=== PATIENT | female | born 1965 | race Caucasian/White ===

== ENCOUNTER 2018-02-21 13:32 | Inpatient (IN) | payer OTHER ==
[2018-02-21 14:08] LABS: #Basophils 0.1 thou/uL (0.0-0.2); #Eosinphils 0.1 thou/uL (0.0-0.7); #Lymphocytes 2.7 thou/uL (1.20-3.40); #Monocytes 0.6 thou/uL (0.11-0.59); #Neutrophils 4.7 thou/uL (1.40-6.50); %Basophils 0.7 % (0.0-1.0); %Eosinophils 0.7 % (0.0-10.0); %Lymphocytes 33.4 % (21.0-51.0); %Monocytes 7.5 % (0.0-10.0); %Neutrophils 57.6 % (42.0-75.0); Hemoglobin 14.8 g/dL (12.0-16.0); Mean Corpuscular HGB CONC 33.5 g/dL (32.0-36.0); Mean Corpuscular Hemoglobin 31.6 pg (27.0-31.0); Mean Corpuscular Volume 94.3 fL (78.0-98.0); Mean Platelet Volume 7.7 fL (7.4-10.4); Platelet Count 377 thou/uL (130-400); RBC Distribution Width 11.7 % (11.5-14.5); Red Blood Cell (RBC) Count 4.67 mill/uL (4.20-5.40); White Blood Cell (WBC) Count 8.1 thou/uL (4.8-10.8)
[2018-02-21 14:14] LABS: Prothrombin Time 13.7 SEC (12.0-14.7)
[2018-02-21 14:15] LABS: PTT 29.9 SEC (22.9-36.1)
[2018-02-21 14:30] LABS: ALT (SGPT) 32 U/L (8-55); AST (SGOT) 27 U/L (5-34); Albumin 4.6 g/dL (3.5-5.0); Alkaline Phosphatase 80 U/L (40-150); Anion Gap 14 mmol/L (10-20); BUN (Urea Nitrogen) 12 mg/dL (9.8-20.1); Bilirubin, Total 0.7 mg/dL (0.2-1.2); CK (CPK) 102 U/L (29-168); Calc. Creatinine Clearance 0 mL/min (70-130); Carbon Dioxide 24 mmol/L (22-29); Chloride 101 mmol/L (98-107); Estimated GFR-MDRD 70; Globulin 2.7 g/dL (2.4-3.5); Glucose 102 mg/dL (70-105); Protein, Total 7.3 g/dL (6.0-8.3); Sodium 135 mmol/L (136-145)
[2018-02-21 14:35] LABS: Troponin I Less than 0.010 ng/mL (< 0.028)
--- NOTE | 2018-02-21 15:06 | CT ---
CT BRAIN PERFORMED WITHOUT CONTRAST ENHANCEMENT: Date: 02/21/18 HISTORY: Left-sided numbness. FINDINGS: Ventricular and cisternal system is within normal limits. No signs of intracerebral hemorrhage or ext ra-axial fluid collections. Mastoid air cells and visualized sinuses are clear. IMPRESSION: No acute intracranial abnormalities. Findings telephoned to Dr. Ruby at 1355 hours. CODE CR. POS: [facility]
--- NOTE | 2018-02-21 15:17 | RAD ---
PORTABLE CHEST: HISTORY: Left-sided sensory deficits. FINDINGS: The lung radford are clear. Evidence of old healed fracture posterior right 7th rib. Heart and media stinum unremarkable. IMPRESSION: No acute abnormality. POS: [facility]
--- NOTE | 2018-02-21 16:25 | PDOC.FPRHP ---
- History of Present Illness Chief Complaint: TIA vs CVA History of Present Illness: This is a 52 yo F coming in for eval of CVA vs TIA. PMH includes HLD, HTN. Never any events like this in the past. She states about 11:30 she noticed L arm and face numbness that started while showering. States she was "feeling weird" and co-worker noticed that she "did not look right" so she went to the ED. She was able to drive to work. Mild headache. No weakness. Upon presentation to the ED she was noted to have L facial droop. At time of author' s eval she states that her L arm numbness is resolved but she has persistent tingling sensation on the L cheek. ED Course: Ct head negative ASA - Allergies/Adverse Reactions Allergies Allergy/AdvReac Type Severity Reaction Status Date / Time Sulfa (Sulfonamide Allergy Severe Anaphylaxis Verified 02/21/18 16:34 Antibiotics) - Home Medications Medication Instructions Recorded Confirmed Type Atorvastatin Calcium 20 mg PO HS 02/21/18 02/21/18 History Lisinopril/Hydrochlorothiazide 1 tab PO DAILY 02/21/18 02/21/18 History [Prinizide 20-12.5] Acetaminophen [Tylenol Regular 650 mg PO Q4H PRN tab 02/22/18 Rx Strength] Aspirin [Ecotrin Regular Strength] 325 mg PO DAILY #30 tab 02/22/18 Rx - History PMHx: HTN, HLD PSHx: D&Cx2, Uterine Ablation FHx: Mother Stroke, CABG Social: no smoking, alcohol, or drugs - Review of Systems General: denies: fever/chills, weight/appetite/sleep changes, night sweats ENT: denies: nasal congestion Respiratory: denies: cough, shortness of breath Cardiovascular: denies: chest pain, palpitation Gastrointestinal: denies: nausea, vomiting, diarrhea, constipation, abdominal pain Skin: denies: rashes Musculoskeletal: denies: pain, tenderness Neurological: reports: numbness (see hpi), other. denies: weakness - Vital signs BP: 170/82 HR: 83 RR: 20 Tmax: 98.5 Pox: 98% on Ra Wt: 98.5kg - Physical Exam Constitutional: NAD, awake, alert and oriented HEENT: normocephalic and atraumatic, PERRLA Neck: supple, no bruits Chest: no-tender to palpation Heart: RRR, normal S1/S2 Lungs: CTAB, no respiratory distress, good air movement Abdomen: soft, non-tender, bowel sounds present Musculoskeletal: normal structure, normal tone -Musculoskeletal: executive candidate developer strength 4/4, no upper extremity drift, raises legs off the bed, symmetrical strength Neurological: CN II-XII intact -Neurological: brushing L side of face as opposed to R results in different sensation, no sign of facial droop on author's examination Skin: no rash/lesions, capillary refill <2 seconds Psychiatric: normal mood and affect FMR H&P: Results - Labs Result Diagrams: 02/21/18 13:57 02/22/18 03:30 Lab results: WBC 8.1 thou/uL (4.8-10.8) 02/21/18 13:57 Hgb 14.8 g/dL (12.0-16.0) 02/21/18 13:57 Hct 44.0 % (36.0-47.0) 02/21/18 13:57 MCV 94.3 fL (78.0-98.0) 02/21/18 13:57 Plt Count 377 thou/uL (130-400) 02/21/18 13:57 Neutrophils % 57.6 % (42.0-75.0) 02/21/18 13:57 Sodium 135 mmol/L (136-145) L 02/21/18 13:57 Potassium 4.0 mmol/L (3.5-5.1) 02/21/18 13:57 Chloride 101 mmol/L (98-107) 02/21/18 13:57 Carbon Dioxide 24 mmol/L (22-29) 02/21/18 13:57 BUN 12 mg/dL (9.8-20.1) 02/21/18 13:57 Creatinine 0.85 mg/dL (0.6-1.1) 02/21/18 13:57 Glucose 102 mg/dL (70-105) 02/21/18 13:57 Calcium 10.0 mg/dL (7.8-10.44) 02/21/18 13:57 Total Bilirubin 0.7 mg/dL (0.2-1.2) 02/21/18 13:57 AST 27 U/L (5-34) 02/21/18 13:57 ALT 32 U/L (8-55) 02/21/18 13:57 Alkaline Phosphatase 80 U/L (40-150) 02/21/18 13:57 Creatine Kinase 102 U/L (29-168) 02/21/18 13:57 CK-MB (CK-2) 1.0 ng/mL (0-6.6) 02/21/18 13:57 Serum Total Protein 7.3 g/dL (6.0-8.3) 02/21/18 13:57 Albumin 4.6 g/dL (3.5-5.0) 02/21/18 13:57 - EKG Interpretation EKG: sinus rhythm, occassional PVCs, no acute ST, T wave, or Q wave changes FMR H&P: A/P - Problem List (1) TIA (transient ischemic attack) Current Visit: Yes Status: Acute Code(s): G45.9 - TRANSIENT CEREBRAL ISCHEMIC ATTACK, UNSPECIFIED (2) HTN (hypertension) Current Visit: Yes Status: Acute Code(s): I10 - ESSENTIAL (PRIMARY) HYPERTENSION (3) HLD (hyperlipidemia) Current Visit: Yes Status: Acute Code(s): E78.5 - HYPERLIPIDEMIA, UNSPECIFIED - Plan #TIA vs CVA - symptoms almost resolved at time of exam, still with L facial sensation - initial NIHSS:2 on presentation to the ED - CT head negative - CTA head/neck ordered - Brain MRI - Neuro consulted, recs appreciated - PT/OT/ST # HTN - permissive HTN to 220/120 for 24 hrs - hydralazine PRN - hold home meds 24 hrs # HLD - home atorvastatin Code: full Fluids: TKO Diet: NPO pending bedside swallow Dispo: 1-2 days FMR H&P: Upper Level - Plan Date/Time: 02/21/18 [id number] I, [], have evaluated this patient and agree with findings/plan as outlined by equine intern resident. Pertinent changes/additions are listed here. Attending Addendum - Attending Addendum Date/Time: 02/22/18 4033 I personally evaluated the patient and discussed the management with Dr. Álvarez yesterday. I agree with the History, Examination, Assessment and Plan documented above with any addition or exceptions noted below.
--- NOTE | 2018-02-21 17:17 | CT ---
CT ARTERIOGRAM NECK WITH IV CONTRAST AND 3D MIP IMAGING CT ARTERIOGRAM HEAD WITH IV CONTRAST AND 3D MIP IMAGING CT BRAIN WITH IV CONTRAST 02/21/18 HISTORY: cva Good contrast flow within each carotid and vertebral system with normal branching of the great vessel s at the aortic arch. 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 Minimal calcification and plaque at the left carotid bifurcation without stenosis. Good flow througho ut each internal carotid artery. 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 [place] is intact. Good flow into each anterior and mid dle cerebral arterial system. No focal aneurysm, stenosis, or thrombus. IMPRESSION: No acute vascular perfusion abnormality of the brain is demonstrated. No focal embolus or stenosis. 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 POS: [facility]
[2018-02-21 18:02] VITALS: BMI 34.2
[2018-02-21] MEDS ORDERED: Acetaminophen 325 MG TAB PO PRN (18:02)
[2018-02-21] MEDS ORDERED: hydrALAZINE 20 MG/ML VIAL SLOW IVP PRN (18:02)
[2018-02-21] MEDS ORDERED: Clopidogrel Bisulfate 75 MG TAB PO SCH (18:15)
[2018-02-22] MEDS ORDERED: Ketorolac Tromethamine 30 MG/ML VIAL IVP SCH (08:15)
[2018-02-22] MEDS ORDERED: Clopidogrel Bisulfate 75 MG TAB PO SCH (09:00)
[2018-02-22] MEDS ORDERED: Aspirin 325 mg Enteric Coated Tablet PO SCH (09:00)
[2018-02-22] MEDS ORDERED: Enoxaparin Sodium 40 MG/0.4 ML SYRINGE SC SCH (09:00)
--- NOTE | 2018-02-22 10:27 | CON ---
DATE OF CONSULTATION: 02/22/2018 CONSULTING PHYSICIAN: [facility] IMPRESSION: 1. Probable migraine with a transient numbness and persistent headache. 2. Hypertension. 3. Hyperlipidemia. PLAN: 1. Toradol 30 mg IV. 2. MRI of the brain to confirm lack of ischemic changes. Ms. Servin is a 52-year-old white female with past history of hypertension, hyperlipidemia. She w as getting ready for work when she started developing a feeling of numbness involving the left side o f the face. It then spread to the left hand. She developed some headache following this that steadi ly has worsened. The numbness has essentially cleared off after being present for at least 6 hours. She has never had anything like this before. Initial CT scan of the brain did not show any ischemic changes or hemorrhage. She had a CTA and was told that there were no signs of any blockages. The r esults are not confirmable due to the fact that the computer systems are down. She denies a history of migraines. PAST MEDICAL HISTORY: Hypertension, hyperlipidemia. ALLERGIES: SULFA. SOCIAL HISTORY: No tobacco or alcohol use. FAMILY HISTORY: Noncontributory. REVIEW OF SYSTEMS: No complaints of shortness of breath, chest pain, abdominal pain, nausea, vomitin g, double vision, slurred speech or difficulty swallowing. PHYSICAL EXAMINATION: GENERAL: She is a well-nourished middle-aged woman in no distress. VITAL SIGNS: Pulse 88 in normal sinus rhythm, respirations 16. She is afebrile. HEENT: Pupils are equal and reactive. Conjunctivae clear. Oropharynx clear. NECK: Supple. EXTREMITIES: No cyanosis, clubbing or edema. NEUROLOGIC: She is alert and appropriate. Her speech is fluent and clear. Cranial nerves are intac t. Motor exam shows equal strength. There is no dysmetria present. Sensation is intact to touch. SUMMARY: This middle-aged woman who developed left-sided numbness followed by development of a heada diane without any evidence of intracerebral hemorrhage. I strongly suspect this will t rail turner to be a migraine.
--- NOTE | 2018-02-22 12:28 | MRI ---
MRI BRAIN WITHOUT CONTRAST: INDICATIONS: Stroke. Left-sided sensory deficit. FINDINGS: There is no evidence of acute territorial infarction, intracranial mass effect, or midline shift. Th e ventricular system is normal in size. There are no significant signal abnormalities of the brain p arenchyma. No intracranial hemorrhagic susceptibility is present. There is mild bilateral mastoid f luid. A partially empty sella is incidentally noted. There is patency of the imaged skull base flow voids. IMPRESSION: There is no acute territorial infarction, mass effect, or midline shift. POS: [facility]
[2018-02-22 12:50] LABS: Anion Gap 14 mmol/L (10-20); BUN (Urea Nitrogen) 10 mg/dL (9.8-20.1); Calc. Creatinine Clearance 130 mL/min (70-130); Calcium 9.9 mg/dL (7.8-10.44); Carbon Dioxide 25 mmol/L (22-29); Cardiac Risk 2.6 (Less than 4.5); Chloride 103 mmol/L (98-107); Cholesterol 174 mg/dl (< 200 Desired); Estimated GFR-MDRD 79; Glucose 93 mg/dL (70-105); HDL Cholesterol 66 mg/dL (>60 Neg Risk); LDL Cholesterol, Calculated 95 mg/dL; Potassium 3.8 mmol/L (3.5-5.1); Sodium 138 mmol/L (136-145); Triglycerides 66 mg/dL (Less than 150)
[2018-02-22 15:35] VITALS: BP 150/89; TEMP 98
[2018-02-22 17:45] LABS: #Basophils 0.1 thou/uL (0.0-0.2); #Eosinphils 0.1 thou/uL (0.0-0.7); #Lymphocytes 2.5 thou/uL (1.20-3.40); #Monocytes 0.6 thou/uL (0.11-0.59); #Neutrophils 2.6 thou/uL (1.40-6.50); %Basophils 1.1 % (0.0-1.0); %Eosinophils 1.6 % (0.0-10.0); %Lymphocytes 42.6 % (21.0-51.0); %Monocytes 9.8 % (0.0-10.0); Mean Corpuscular HGB CONC 32.4 g/dL (32.0-36.0); Mean Corpuscular Hemoglobin 30.5 pg (27.0-31.0); Mean Platelet Volume 7.9 fL (7.4-10.4); Platelet Count 344 thou/uL (130-400); RBC Distribution Width 11.8 % (11.5-14.5); Red Blood Cell (RBC) Count 4.61 mill/uL (4.20-5.40); White Blood Cell (WBC) Count 5.8 thou/uL (4.8-10.8)
--- NOTE | 2018-02-23 00:28 | DIS-2 ---
DATE OF ADMISSION: 02/21/2018 DATE OF DISCHARGE: 02/22/2018 RESIDENT: Rafa Álvarez MD ADMITTING ATTENDING: Favio Teague MD DISCHARGE ATTENDING: Favio Teague MD CONSULTATIONS: Dr. Jae Powell, Neurology. PROCEDURES: Brain MRI shows no acute changes, CT head and neck shows no acute changes, CT head shows no changes, PRIMARY DIAGNOSIS: Severe migraine versus TIA. SECONDARY DIAGNOSIS: 1. Hypertension. 2. Hyperlipidemia. DISCHARGE MEDICATIONS: Aspirin 325 mg, atorvastatin, lisinopril, hydrochlorothiazide. DISCONTINUED MEDICATIONS: None. HISTORY OF PRESENT ILLNESS AND HOSPITAL COURSE: This is a 52-year-old female who came in with sympto ms of left numbness and tingling going on for about 4 hours before presentation to the ER. She was a ble to drive to work and the coworker noticed that she was seeming "a little off." The patient state s that she was feeling malaise and the coworkers suggested that she should go to the ER. Upon presen tation to the ER, ER documentation notes a left facial droop as well as sensation and numbness on the left side of the face. On examination in the ER, the left facial droop had resolved. Patient had CT head in the ER which was negative. CT head and neck showed no sign of carotid arter y stenosis or embolism. Brain MRI showed no signs of acute stroke. The patient was evaluated by Carlos kendall who thinks that this was likely a severe migraine. The patient was discharged home with aspir in. DISPOSITION: Stable. DISCHARGE INSTRUCTIONS: 1. Location: Home. 2. Diet: Regular. 3. Activity: As tolerated. 4. Follow up Dr. José Kerns in [address] Jae Powell in 1-2 weeks. Should the patient h ave recurrent headache or migraine symptoms, consider initiating antimigraine medication.
== END 2018-02-22 16:47 | disposition home or self-care (01) | DRG 103 ==
LOC: 2SE 13:32 → ERS 13:32 → 2SE 17:37
PROVIDERS: ADMIT Family Medicine; ATTEND Family Medicine
DX: G43.909 Migraine, unspecified, not intractable, without status migrainosus (principal); G45.9 Transient cerebral ischemic attack, unspecified; I10 Essential (primary) hypertension; E78.5 Hyperlipidemia, unspecified; R29.810 Facial weakness
CPT/HCPCS: 0042T; 36415; 36416; 70450; 70496; 70498; 70551; 71045; 80048; 80053; 80061; 82553; 84484; 85025; 85610; 85730; 93005; G8978-GP-CJ; G8979-GP-CJ; G8980-GP-CJ; G8987-GO-CI; G8988-GO-CI; G8989-GO-CI; G8996-GN-CH; G8997-GN-CH; G8998-GN-CH; J1650; J1885